=== PATIENT | female | born 1965 | race African-American/Black ===

== ENCOUNTER 2019-06-05 02:42 | Inpatient (IN) | payer MEDICAID ==
[~2019-06-05] VITALS: Ht 167.6 cm; Wt 135.7 kg
[2019-06-05] MEDS ORDERED: ALBUTEROL (0.083%) 2.5MG/3ML NEB HHN STA (05:35)
[2019-06-05] MEDS ORDERED: IPRATROPIUM BROMIDE (0.02%) 0.5MG/2.5ML NEB HHN STA (05:35)
[2019-06-05] MEDS ORDERED: PREDNISONE 20MG TABLET PO STA (05:35)
[2019-06-05] MEDS ORDERED: HYDRALAZINE HCL 10MG TABLET PO ONE (07:30)
[2019-06-05 09:04] LABS: CHLORIDE 111 mEq/L (98-107)
[2019-06-05 09:06] LABS: BASOPHILS % 0.8 % (0.0-2.0); EOSINOPHILS % 0.5 % (0.0-5.0); HEMATOCRIT. 40.9 % (36.0-48.0); HEMOGLOBIN. 13.7 g/dL (12.0-16.0); LYMPHOCYTES % 27.9 % (20.0-50.0); MEAN CORPUSCULAR HEMOGLOBIN 28.5 pg (28.0-32.0); MEAN CORPUSCULAR VOLUME 85.6 fL (81.0-99.0); MEAN PLATELET VOLUME 9.7 fl (7.4-10.4); MONOCYTES % 5.8 % (2.0-8.0); PLATELET 338 x1000/uL (130-400); RED BLOOD CELL COUNT 4.78 mill/uL (4.2-5.4); RED CELL DISTRIBUTION WIDTH 15.3 % (11.6-14.6)
[2019-06-05] MEDS ORDERED: ASPIRIN 325MG EC TABLET PO ONE (09:45)
[2019-06-05 10:07] LABS: INR 1.2; PROTHROMBIN TIME 12.7 sec (9.6-11.0)
[2019-06-05] MEDS: ENOXAPARIN 120MG/0.8ML SYR SUBCUT NR ×2 (10:34→12:02)
[2019-06-05] MEDS ORDERED: NITROGLYCERIN OINT 1GM/INCH UDPKT TD ONE ×2 (11:00→11:30)
[2019-06-05] MEDS ORDERED: ACETAMINOPHEN 325MG TABLET PO PRN (15:00)
[2019-06-05] MEDS ORDERED: ONDANSETRON HCL 4MG/2ML INJ IV PRN (15:00)
[2019-06-05 15:17] VITALS: BP 166/102
[2019-06-05 15:25] VITALS: BP 166/102
[2019-06-05] MEDS: LOSARTAN POTASSIUM 100 MG TABLET PO SCH (15:41)
[2019-06-05] MEDS: FUROSEMIDE 40MG/4ML VIAL IVP SCH ×2 (16:00→17:15)
[2019-06-05 16:34] LABS: HEPATITIS B SURFACE ANTIGEN NEGATIVE
[2019-06-05 17:00] VITALS: BP 149/99
[2019-06-05 17:04] LABS: HEPATITIS A AB IGM NEGATIVE (NEGATIVE)
[2019-06-05 20:00] VITALS: BP 112/63
[2019-06-05] MEDS: METOPROLOL TARTRATE 50MG TABLET PO SCH (21:30)
[2019-06-06] VITALS: BP 150/96
[2019-06-06] MEDS: IPRATROPIUM/ALBUTEROL 0.5-3(2.5)MG/3ML NEB HHN SCH ×6 (00:39→21:58)
[2019-06-06 04:00] VITALS: BP 135/82
[2019-06-06 06:06] LABS: BASOPHILS % 0.8 % (0.0-2.0); EOSINOPHILS % 0.6 % (0.0-5.0); HEMATOCRIT. 40.9 % (36.0-48.0); HEMOGLOBIN. 13.8 g/dL (12.0-16.0); LYMPHOCYTES % 28.1 % (20.0-50.0); MEAN CORPUSCULAR HEMOGLOBIN 28.6 pg (28.0-32.0); MEAN CORPUSCULAR VOLUME 85.1 fL (81.0-99.0); NEUTROPHILS % 62.5 % (40.0-76.0); PLATELET 333 x1000/uL (130-400); RED CELL DISTRIBUTION WIDTH 15.6 % (11.6-14.6)
[2019-06-06] MEDS: FUROSEMIDE 40MG/4ML VIAL IVP SCH ×2 (06:24→18:15)
[2019-06-06 07:25] LABS: CHLORIDE 109 mEq/L (98-107)
[2019-06-06 09:27] LABS: CLARITY URINE CLOUDY (CLEAR); COLOR URINE YELLOW (YELLOW); KETONES URINE NEGATIVE (NEGATIVE); LEUKOCYTE ESTERASE URINE 3+ (NEGATIVE); NITRITE URINE NEGATIVE (NEGATIVE); OCCULT BLOOD URINE TRACE (NEGATIVE); PROTEIN URINE 1+ (NEGATIVE); SPECIFIC GRAVITY URINE 1.017 (1.005-1.030)
[2019-06-06] MEDS: LOSARTAN POTASSIUM 100 MG TABLET PO SCH (09:34)
[2019-06-06] MEDS: METOPROLOL TARTRATE 50MG TABLET PO SCH ×2 (09:34→22:20)
[2019-06-06] MEDS: BUDESONIDE 0.5MG/2ML NEB HHN SCH ×2 (09:34→21:58)
[2019-06-06] MEDS: ASPIRIN 81MG TABLET PO SCH (09:34)
[2019-06-06 10:21] LABS: *AMPHETAMINES SCREEN URINE NEGATIVE (NEGATIVE); CANNABINOID URINE SCREEN NEGATIVE (NEGATIVE); METHADONE URINE SCREEN NEGATIVE (NEGATIVE); OPIATES URINE SCREEN NEGATIVE (NEGATIVE); PHENCYCLIDINE URINE SCREEN NEGATIVE (NEGATIVE)
[2019-06-06 10:22] LABS: *BARBITURATES SCREEN URINE NEGATIVE (NEGATIVE); *BENZODIAZEPINES SCREEN URINE NEGATIVE (NEGATIVE); *COCAINE SCREEN URINE NEGATIVE (NEGATIVE)
[2019-06-06 19:54] VITALS: BP 132/95
[2019-06-07] VITALS: BP 131/97
[2019-06-07 04:00] VITALS: BP 133/95
[2019-06-07] MEDS: IPRATROPIUM/ALBUTEROL 0.5-3(2.5)MG/3ML NEB HHN SCH ×5 (05:25→21:13)
[2019-06-07 07:58] LABS: EOSINOPHILS % 4.1 % (0.0-5.0); HEMATOCRIT. 40.5 % (36.0-48.0); HEMOGLOBIN. 13.8 g/dL (12.0-16.0); MEAN CORPUSCULAR HEMOGLOBIN 28.9 pg (28.0-32.0); MEAN CORPUSCULAR VOLUME 84.6 fL (81.0-99.0); MEAN PLATELET VOLUME 8.9 fl (7.4-10.4); MONOCYTES % 7.3 % (2.0-8.0); NEUTROPHILS % 47.6 % (40.0-76.0); PLATELET 324 x1000/uL (130-400); RED BLOOD CELL COUNT 4.78 mill/uL (4.2-5.4)
[2019-06-07 08:00] VITALS: BP 143/81
[2019-06-07] MEDS: METOPROLOL TARTRATE 50MG TABLET PO SCH ×2 (08:12→21:40)
[2019-06-07] MEDS: ASPIRIN 81MG TABLET PO SCH (08:12)
[2019-06-07] MEDS: LOSARTAN POTASSIUM 100 MG TABLET PO SCH (08:12)
[2019-06-07] MEDS: FUROSEMIDE 40MG/4ML VIAL IVP SCH ×2 (08:12→17:20)
[2019-06-07] MEDS: BUDESONIDE 0.5MG/2ML NEB HHN SCH ×2 (09:26→21:13)
[2019-06-07 10:25] LABS: CHLORIDE 109 mEq/L (98-107)
[2019-06-07 12:00] VITALS: BP 135/91
[2019-06-07 18:45] LABS: CLARITY URINE CLEAR (CLEAR); COLOR URINE YELLOW (YELLOW); KETONES URINE NEGATIVE (NEGATIVE); LEUKOCYTE ESTERASE URINE TRACE (NEGATIVE); NITRITE URINE NEGATIVE (NEGATIVE); OCCULT BLOOD URINE NEGATIVE (NEGATIVE); PH URINE 7.5 (4.5-8.0); PROTEIN URINE NEGATIVE (NEGATIVE); SPECIFIC GRAVITY URINE 1.005 (1.005-1.030); UROBILINOGEN URINE 0.2 E.U./dL (0.2-1.0)
[2019-06-07 20:00] VITALS: BP 129/86
[2019-06-08] VITALS: BP 127/75
[2019-06-08] MEDS: IPRATROPIUM/ALBUTEROL 0.5-3(2.5)MG/3ML NEB HHN SCH ×5 (01:31→16:00)
[2019-06-08 04:00] VITALS: BP 128/85
[2019-06-08] MEDS: FUROSEMIDE 40MG/4ML VIAL IVP SCH ×2 (05:29→17:53)
[2019-06-08 07:59] LABS: BASOPHILS % 1.9 % (0.0-2.0); EOSINOPHILS % 4.9 % (0.0-5.0); HEMATOCRIT. 44.7 % (36.0-48.0); HEMOGLOBIN. 14.8 g/dL (12.0-16.0); LYMPHOCYTES % 38.9 % (20.0-50.0); MEAN CORPUSCULAR HEMOGLOBIN 28.5 pg (28.0-32.0); MEAN CORPUSCULAR VOLUME 85.7 fL (81.0-99.0); MEAN PLATELET VOLUME 8.7 fl (7.4-10.4); MONOCYTES % 6.2 % (2.0-8.0); NEUTROPHILS % 48.1 % (40.0-76.0); PLATELET 342 x1000/uL (130-400); RED BLOOD CELL COUNT 5.21 mill/uL (4.2-5.4)
[2019-06-08 08:00] VITALS: BP 106/69
[2019-06-08 08:13] LABS: CHLORIDE 106 mEq/L (98-107)
[2019-06-08] MEDS: BUDESONIDE 0.5MG/2ML NEB HHN SCH (08:20)
[2019-06-08] MEDS: LOSARTAN POTASSIUM 100 MG TABLET PO SCH (09:00)
[2019-06-08] MEDS: METOPROLOL TARTRATE 50MG TABLET PO SCH (09:00)
[2019-06-08] MEDS ORDERED: POTASSIUM CHLORIDE 20MEQ TABLET SR PO SCH ×2 (09:00→18:00)
[2019-06-08] MEDS: ASPIRIN 81MG TABLET PO SCH (09:00)
[2019-06-08] MEDS ORDERED: NITROGLYCERIN 50MCG/ML 10ML VIAL (CATH LAB) IV ONE (11:54)
[2019-06-08] MEDS ORDERED: NICARDIPINE 100MCG/ML 10ML VIAL (CATH LAB) IV ONE (11:54)
[2019-06-08] MEDS ORDERED: HEPARIN SODIUM 1,000 UNIT/1ML VIAL IV ONE (11:54)
[2019-06-08 12:00] VITALS: BP 135/88
[2019-06-08] MEDS ORDERED: IODIXANOL 320MG/ML 100 ML BOTTLE IV ONE (12:45)
[2019-06-08] MEDS ORDERED: FENTANYL CITRATE/PF 50MCG/ML 2ML VIAL ONE (12:45)
[2019-06-08] MEDS ORDERED: MIDAZOLAM HCL 2 MG/2 ML VIAL ONE (12:45)
[2019-06-08] MEDS ORDERED: LIDOCAINE HCL 1% 20ML VIAL (Pyxis) INJ ONE (12:45)
[2019-06-08] MEDS ORDERED: ACETAMINOPHEN 325MG TABLET PO PRN (13:45)
[2019-06-08] MEDS ORDERED: ATROPINE SULFATE 1MG/10ML SYR IV PRN (13:45)
[2019-06-08 16:00] VITALS: BP 107/74
[2019-06-08] MEDS ORDERED: LIP40 MT (18:08)
[2019-06-08 18:34] VITALS: BP 107/74
== END 2019-06-08 20:44 | disposition home or self-care (01) | DRG 190 ==
LOC: ER 02:42 → 7WST 10:49 → ENRESERV 13:36
PROVIDERS: ADMIT Internal Medicine; ATTEND Internal Medicine
PROC: 4A023N7 Measurement of Cardiac Sampling and Pressure, Left Heart, Percutaneous Approach (ICD-10-PCS; principal; 2019-06-08)
PROC: B2111ZZ Fluoroscopy of Multiple Coronary Arteries using Low Osmolar Contrast (ICD-10-PCS; 2019-06-08)
DX: I21.4 Non-ST elevation (NSTEMI) myocardial infarction (principal); I40.9 Acute myocarditis, unspecified; I50.21 Acute systolic (congestive) heart failure; E87.8 Other disorders of electrolyte and fluid balance, not elsewhere classified; J45.901 Unspecified asthma with (acute) exacerbation; I42.9 Cardiomyopathy, unspecified; Z68.42 Body mass index [BMI] 45.0-49.9, adult; R74.0 Nonspecific elevation of levels of transaminase and lactic acid dehydrogenase [LDH]; I11.0 Hypertensive heart disease with heart failure; E66.9 Obesity, unspecified; Z87.891 Personal history of nicotine dependence; Z87.01 Personal history of pneumonia (recurrent); Z79.899 Other long term (current) drug therapy; Z71.89 Other specified counseling
CPT/HCPCS: 36415; 71045; 76700; 80048; 80053; 80061; 80305; 81003; 83735; 83880; 84443; 84484; 85025; 86705; 86709; 86803; 87340; 87804; 93005; 93306; 94640; 99285; J1644; J1650; J1940; J2250; J3010; J3490; J7512; J7626; Q9967

== ENCOUNTER 2020-02-27 11:10 | Inpatient (IN) | payer BC, MEDICAID ==
[~2020-02-27] VITALS: Ht 162.6 cm; Wt 152.4 kg
[~2020-02-27 11:10] MED LIST: LIP40 MT
[2020-02-27] MEDS ORDERED: ONDANSETRON 4MG ODT PO STA (12:14)
[2020-02-27] MEDS ORDERED: SODIUM CHLORIDE 0.9% 500 ML IV ONE (13:00)
[2020-02-27 13:29] LABS: BASOPHILS % 0.3 % (0.0-2.0); EOSINOPHILS % 1.3 % (0.0-5.0); HEMATOCRIT. 42.2 % (36.0-48.0); HEMOGLOBIN. 13.8 g/dL (12.0-16.0); LYMPHOCYTES % 34.2 % (20.0-50.0); MEAN CORPUSCULAR HEMOGLOBIN 28.6 pg (28.0-32.0); MEAN CORPUSCULAR VOLUME 87.5 fL (81.0-99.0); MEAN PLATELET VOLUME 8.3 fl (7.4-10.4); MONOCYTES % 6.4 % (2.0-8.0); NEUTROPHILS % 57.8 % (40.0-76.0); PLATELET 322 x1000/uL (130-400); RED BLOOD CELL COUNT 4.82 mill/uL (4.2-5.4); RED CELL DISTRIBUTION WIDTH 17.1 % (11.6-14.6)
[2020-02-27 13:33] LABS: CHLORIDE 111 mEq/L (98-107)
[2020-02-27 13:37] LABS: INR 1.5; PROTHROMBIN TIME 15.1 sec (9.6-11.0)
[2020-02-27] MEDS ORDERED: LABETALOL 5MG/ML SYR 20 MG/4 ML SYRINGE IV NR (14:15)
[2020-02-27] MEDS ORDERED: ASPIRIN 325MG TABLET PO ONE (15:00)
[2020-02-27 15:07] LABS: CLARITY URINE CLOUDY (CLEAR); COLOR URINE DARK YELLOW (YELLOW); KETONES URINE TRACE (NEGATIVE); LEUKOCYTE ESTERASE URINE 1+ (NEGATIVE); NITRITE URINE NEGATIVE (NEGATIVE); OCCULT BLOOD URINE 1+ (NEGATIVE); PROTEIN URINE 3+ (NEGATIVE); SPECIFIC GRAVITY URINE 1.024 (1.005-1.030)
[2020-02-27] MEDS ORDERED: CEFTRIAXONE 1 G PREMIX 50 ML IV SCH ×2 (16:30→19:30)
[2020-02-27] MEDS ORDERED: METOCLOPRAMIDE HCL 10MG/2ML VIAL IV ONE (16:45)
[2020-02-27] MEDS ORDERED: ONDANSETRON HCL 4MG/2ML INJ IV PRN (19:30)
[2020-02-27] MEDS ORDERED: MAGNESIUM/ALUMINUM HYDROXIDE/SIMETHICONE 30ML UDC PO PRN (19:30)
[2020-02-27] MEDS ORDERED: ACETAMINOPHEN 325MG TABLET PO PRN (19:30)
[2020-02-27] MEDS ORDERED: HYDROMORPHONE HCL/PF 2MG/ML CPJ IV PRN (19:30)
[2020-02-27 23:40] VITALS: BP 167/115
[2020-02-27] MEDS: DEXT 5%/0.45% NACL 1000ML 1,000 ML IV SCH (23:55)
[2020-02-27] MEDS: CLONIDINE 0.1MG TABLET PO PRN (23:56)
[2020-02-27] MEDS: ENOXAPARIN 40MG/0.4ML SYR SUBCUT SCH (23:56)
[2020-02-28] VITALS: BP 167/115
[2020-02-28 04:00] VITALS: BP 149/88
[2020-02-28 07:40] LABS: BASOPHILS % 0.5 % (0.0-2.0); EOSINOPHILS % 3.2 % (0.0-5.0); HEMATOCRIT. 38.8 % (36.0-48.0); HEMOGLOBIN. 12.7 g/dL (12.0-16.0); LYMPHOCYTES % 33.3 % (20.0-50.0); MEAN CORPUSCULAR HEMOGLOBIN 28.8 pg (28.0-32.0); MEAN CORPUSCULAR VOLUME 88.1 fL (81.0-99.0); MEAN PLATELET VOLUME 9.5 fl (7.4-10.4); MONOCYTES % 7.9 % (2.0-8.0); NEUTROPHILS % 55.1 % (40.0-76.0); PLATELET 220 x1000/uL (130-400); RED CELL DISTRIBUTION WIDTH 17.1 % (11.6-14.6)
[2020-02-28 07:49] LABS: INR 1.4
[2020-02-28 08:00] VITALS: BP 160/112
[2020-02-28 08:19] LABS: CHLORIDE 113 mEq/L (98-107)
[2020-02-28 08:27] LABS: LDL CHOLESTEROL 81 mg/dL (5-100)
[2020-02-28 08:28] LABS: CREATINE KINASE 76 IU/L (26-192)
[2020-02-28 08:29] LABS: CREATINE KINASE MB FRACTION < 1.0 ng/mL (0.5-3.6); HDL CHOLESTEROL 39 mg/dL (40-59)
[2020-02-28] MEDS: CLONIDINE 0.1MG TABLET PO PRN (09:01)
[2020-02-28] MEDS: ENOXAPARIN 40MG/0.4ML SYR SUBCUT SCH (09:02)
[2020-02-28] MEDS: DEXT 5%/0.45% NACL 1000ML 1,000 ML IV SCH (09:02)
[2020-02-28] MEDS: AMLODIPINE 10MG TABLET PO SCH (11:58)
[2020-02-28 12:00] VITALS: BP 113/95
[2020-02-28] MEDS ORDERED: CEFTRIAXONE 1,000 MG in DEXTROSE 5% WATER 50 ML IV SCH (14:00)
[2020-02-28] MEDS: FUROSEMIDE 40MG TABLET PO SCH (15:02)
[2020-02-28] MEDS: HYDRALAZINE HCL 25MG TABLET PO SCH ×2 (15:02→21:26)
[2020-02-28] MEDS: LOSARTAN POTASSIUM 25 MG TABLET PO SCH (15:02)
[2020-02-28 15:57] LABS: INR 1.4; PROTHROMBIN TIME 14.7 sec (9.6-11.0)
[2020-02-28 16:00] VITALS: BP 120/81
[2020-02-28] MEDS: ENOXAPARIN 150MG/ML SYR SUBCUT SCH (17:39)
[2020-02-28] MEDS ORDERED: WARFARIN SODIUM 5MG TABLET PO NR (18:00)
[2020-02-28 20:00] VITALS: BP 127/87
[2020-02-28] MEDS: CARVEDILOL 3.125 MG TABLET PO SCH (21:26)
[2020-02-29] VITALS: BP 113/74
[2020-02-29] MEDS: DEXT 5%/0.45% NACL 1000ML 1,000 ML IV SCH ×2 (00:27→10:49)
[2020-02-29 04:00] VITALS: BP 127/92
[2020-02-29] MEDS: ENOXAPARIN 150MG/ML SYR SUBCUT SCH (06:30)
[2020-02-29] MEDS: HYDRALAZINE HCL 25MG TABLET PO SCH (06:30)
[2020-02-29 06:59] LABS: BASOPHILS % 1.8 % (0.0-2.0); EOSINOPHILS % 5.8 % (0.0-5.0); HEMATOCRIT. 39.2 % (36.0-48.0); LYMPHOCYTES % 34.1 % (20.0-50.0); MEAN CORPUSCULAR HEMOGLOBIN 29.1 pg (28.0-32.0); MEAN CORPUSCULAR VOLUME 87.5 fL (81.0-99.0); MEAN PLATELET VOLUME 8.7 fl (7.4-10.4); MONOCYTES % 7.8 % (2.0-8.0); NEUTROPHILS % 50.5 % (40.0-76.0); PLATELET 310 x1000/uL (130-400); RED BLOOD CELL COUNT 4.48 mill/uL (4.2-5.4); RED CELL DISTRIBUTION WIDTH 17.5 % (11.6-14.6)
[2020-02-29 07:14] LABS: CHLORIDE 110 mEq/L (98-107)
[2020-02-29 07:33] LABS: INR 1.3; PROTHROMBIN TIME 13.3 sec (9.6-11.0)
[2020-02-29 08:09] VITALS: BP 151/102
[2020-02-29] MEDS: CARVEDILOL 3.125 MG TABLET PO SCH (08:39)
[2020-02-29] MEDS: FUROSEMIDE 40MG TABLET PO SCH (08:39)
[2020-02-29] MEDS: LOSARTAN POTASSIUM 25 MG TABLET PO SCH (08:39)
[2020-02-29] MEDS: AMLODIPINE 10MG TABLET PO SCH (08:41)
[2020-02-29 12:49] VITALS: BP 150/82
[2020-02-29] MEDS ORDERED: HYDRALAZINE HCL 50MG TABLET PO SCH (14:00)
[2020-02-29] MEDS ORDERED: WARFARIN SODIUM 5MG TABLET PO NR (18:00)
[2020-02-29] MEDS ORDERED: CARVEDILOL 6.25 MG TABLET PO SCH (21:00)
== END 2020-02-29 13:50 | disposition home or self-care (01) | DRG 690 ==
LOC: ER 11:10 → 5WST 17:57 → EDBEDREQ 18:20 → ENRESERV 20:40
PROVIDERS: ADMIT Hospitalist; ATTEND Hospitalist
DX: N39.0 Urinary tract infection, site not specified (principal); I50.22 Chronic systolic (congestive) heart failure; I42.0 Dilated cardiomyopathy; Z68.43 Body mass index [BMI] 50.0-59.9, adult; I11.0 Hypertensive heart disease with heart failure; E86.0 Dehydration; J45.909 Unspecified asthma, uncomplicated; K42.9 Umbilical hernia without obstruction or gangrene; E66.9 Obesity, unspecified; Z79.01 Long term (current) use of anticoagulants; I51.3 Intracardiac thrombosis, not elsewhere classified
CPT/HCPCS: 36415; 74176; 76705; 80048; 80053; 80061; 81003; 82550; 82553; 83735; 84443; 84484; 85025; 93005; 93306; 93970; 96374; 99291; J0696; J1650; J2405; J2765; J3490; J7040; J7060; Q0162

== ENCOUNTER 2020-08-04 10:26 | Inpatient (IN) | payer BC, MEDICAID ==
[2020-08-04] VITALS: BP 141/104
[~2020-08-04] VITALS: Ht 162.6 cm; Wt 98.5 kg
[2020-08-04] MEDS ORDERED: MORPHINE SULFATE 4 MG/ML CPJ (NOT FOR IM USE) IV STA (10:39)
[2020-08-04] MEDS ORDERED: FAMOTIDINE 20MG/2ML VIAL IV STA (10:39)
[2020-08-04] MEDS ORDERED: ONDANSETRON HCL 4MG/2ML INJ IV STA (10:39)
[2020-08-04] MEDS ORDERED: SODIUM CHLORIDE 0.9% 1,000 ML IV ONE (10:45)
[2020-08-04 11:10] LABS: BASOPHILS % 0.8 % (0.0-2.0); EOSINOPHILS % 0.5 % (0.0-5.0); HEMATOCRIT. 42.6 % (36.0-48.0); HEMOGLOBIN. 13.8 g/dL (12.0-16.0); LYMPHOCYTES % 24.2 % (20.0-50.0); MEAN CORPUSCULAR HEMOGLOBIN 29.7 pg (28.0-32.0); MEAN CORPUSCULAR VOLUME 91.4 fL (81.0-99.0); MEAN PLATELET VOLUME 8.7 fl (7.4-10.4); MONOCYTES % 7.8 % (2.0-8.0); NEUTROPHILS % 66.7 % (40.0-76.0); PLATELET 316 x1000/uL (130-400); RED BLOOD CELL COUNT 4.66 mill/uL (4.2-5.4); RED CELL DISTRIBUTION WIDTH 16.5 % (11.6-14.6)
[2020-08-04 11:19] LABS: CHLORIDE 112 mEq/L (98-107); INR 1.4; PROTHROMBIN TIME 14.9 sec (9.6-11.0)
[2020-08-04 11:36] LABS: HCG SCREEN NEGATIVE
[2020-08-04] MEDS ORDERED: ASPIRIN 325MG EC TABLET PO ONE (11:45)
[2020-08-04] MEDS ORDERED: PIPERACILLIN/TAZ 3.375G PREMIX 50 ML IV ONE (12:15)
[2020-08-04] MEDS ORDERED: IOHEXOL-300 100 ML BOTTLE ONE (12:37)
[2020-08-04 16:00] VITALS: BP 195/131
[2020-08-04] MEDS ORDERED: ONDANSETRON HCL 4MG/2ML INJ IV PRN ×2 (16:00→19:30)
[2020-08-04] MEDS ORDERED: HYDROCODONE/ACETAMINOPHEN 5/325MG TABLET PO PRN (16:00)
[2020-08-04] MEDS ORDERED: ACETAMINOPHEN 325MG TABLET PO PRN (16:00)
[2020-08-04] MEDS: CLONIDINE 0.1MG TABLET PO PRN (16:59)
[2020-08-04] MEDS: FUROSEMIDE 40MG/4ML VIAL IVP SCH (16:59)
[2020-08-04] MEDS: LOSARTAN POTASSIUM 100 MG TABLET PO SCH (16:59)
[2020-08-04] MEDS ORDERED: HYDRALAZINE HCL 100MG TABLET PO NR (19:30)
[2020-08-04 20:00] VITALS: BP 113/75
[2020-08-04 21:35] LABS: CLARITY URINE CLEAR (CLEAR); COLOR URINE YELLOW (YELLOW); KETONES URINE NEGATIVE (NEGATIVE); LEUKOCYTE ESTERASE URINE NEGATIVE (NEGATIVE); NITRITE URINE NEGATIVE (NEGATIVE); OCCULT BLOOD URINE NEGATIVE (NEGATIVE); PH URINE 5.5 (4.5-8.0); PROTEIN URINE NEGATIVE (NEGATIVE); SPECIFIC GRAVITY URINE 1.008 (1.005-1.030); UROBILINOGEN URINE 0.2 E.U./dL (0.2-1.0)
[2020-08-04 21:46] LABS: *AMPHETAMINES SCREEN URINE NEGATIVE (NEGATIVE); *BARBITURATES SCREEN URINE NEGATIVE (NEGATIVE); *BENZODIAZEPINES SCREEN URINE NEGATIVE (NEGATIVE); *COCAINE SCREEN URINE NEGATIVE (NEGATIVE); CANNABINOID URINE SCREEN NEGATIVE (NEGATIVE); METHADONE URINE SCREEN NEGATIVE (NEGATIVE); OPIATES URINE SCREEN NEGATIVE (NEGATIVE); PHENCYCLIDINE URINE SCREEN NEGATIVE (NEGATIVE)
[2020-08-04] MEDS: CARVEDILOL 12.5MG TABLET PO SCH (22:02)
[2020-08-04] MEDS: HYDRALAZINE HCL 100MG TABLET PO SCH (22:02)
[2020-08-04] MEDS: ENOXAPARIN 100MG/ML SYR SUBCUT SCH (22:02)
[2020-08-04] MEDS: FAMOTIDINE 20MG TABLET PO SCH (22:02)
[2020-08-04] MEDS: METOCLOPRAMIDE HCL 10MG/2ML VIAL IV SCH (23:53)
[2020-08-05] VITALS: BP 141/104
[2020-08-05 04:00] VITALS: BP 136/89
[2020-08-05 06:17] LABS: CHLORIDE 111 mEq/L (98-107)
[2020-08-05 06:26] LABS: BASOPHILS % 1.2 % (0.0-2.0); EOSINOPHILS % 2.1 % (0.0-5.0); HEMATOCRIT. 38.8 % (36.0-48.0); HEMOGLOBIN. 12.9 g/dL (12.0-16.0); LYMPHOCYTES % 23.4 % (20.0-50.0); MEAN CORPUSCULAR HEMOGLOBIN 30.2 pg (28.0-32.0); MEAN PLATELET VOLUME 8.5 fl (7.4-10.4); NEUTROPHILS % 62.3 % (40.0-76.0); PLATELET 314 x1000/uL (130-400); RED BLOOD CELL COUNT 4.26 mill/uL (4.2-5.4)
[2020-08-05] MEDS: FUROSEMIDE 40MG/4ML VIAL IVP SCH ×2 (06:28→17:30)
[2020-08-05] MEDS: METOCLOPRAMIDE HCL 10MG/2ML VIAL IV SCH ×4 (06:28→23:59)
[2020-08-05] MEDS: HYDRALAZINE HCL 100MG TABLET PO SCH ×3 (06:28→21:25)
[2020-08-05 08:00] VITALS: BP 139/80
[2020-08-05] MEDS: ASPIRIN 81MG TABLET PO SCH (08:07)
[2020-08-05] MEDS: LOSARTAN POTASSIUM 100 MG TABLET PO SCH (08:09)
[2020-08-05] MEDS: CARVEDILOL 12.5MG TABLET PO SCH ×2 (08:09→21:25)
[2020-08-05] MEDS: ENOXAPARIN 100MG/ML SYR SUBCUT SCH (08:09)
[2020-08-05 12:00] VITALS: BP 126/81
[2020-08-05 16:00] VITALS: BP 116/76
[2020-08-05 17:28] LABS: INR 1.4; PROTHROMBIN TIME 14.8 sec (9.6-11.0)
[2020-08-05 20:00] VITALS: BP 153/89
[2020-08-05] MEDS: FAMOTIDINE 20MG TABLET PO SCH (21:25)
[2020-08-06] VITALS: BP 90/51
[2020-08-06 04:00] VITALS: BP 109/68
[2020-08-06] MEDS: HYDRALAZINE HCL 100MG TABLET PO SCH ×3 (06:00→21:43)
[2020-08-06] MEDS: FUROSEMIDE 40MG/4ML VIAL IVP SCH ×2 (06:28→16:55)
[2020-08-06] MEDS: METOCLOPRAMIDE HCL 10MG/2ML VIAL IV SCH ×3 (06:28→16:55)
[2020-08-06 08:23] VITALS: BP_SYST 126; BP_SYST 135; BP_DIAS 115; BP_DIAS 75
[2020-08-06] MEDS ORDERED: LIDOCAINE HCL 1% 20ML VIAL (Pyxis) INJ ONE (08:26)
[2020-08-06] MEDS ORDERED: SODIUM BICARBONATE 4% (2.4MEQ) 5ML VIAL IV ONE (08:27)
[2020-08-06] MEDS: CARVEDILOL 12.5MG TABLET PO SCH ×2 (10:44→21:00)
[2020-08-06] MEDS: LOSARTAN POTASSIUM 100 MG TABLET PO SCH (10:44)
[2020-08-06 12:08] VITALS: BP 176/113
[2020-08-06] MEDS: ASPIRIN 81MG TABLET PO SCH (15:02)
[2020-08-06 15:29] VITALS: BP 102/65
[2020-08-06] MEDS ORDERED: DIPHENHYDRAMINE 25MG CAPSULE PO PRN (16:45)
[2020-08-06] MEDS: CLONIDINE 0.1MG TABLET PO PRN (16:55)
[2020-08-06 20:00] VITALS: BP 94/46
[2020-08-06] MEDS: FAMOTIDINE 20MG TABLET PO SCH (21:47)
[2020-08-07] VITALS: BP 105/68
[2020-08-07] MEDS: METOCLOPRAMIDE HCL 10MG/2ML VIAL IV SCH ×3 (01:03→12:00)
[2020-08-07 04:00] VITALS: BP 94/62
[2020-08-07] MEDS: HYDRALAZINE HCL 100MG TABLET PO SCH (06:00)
[2020-08-07] MEDS: FUROSEMIDE 40MG/4ML VIAL IVP SCH (06:19)
[2020-08-07 08:00] VITALS: BP 99/58
[2020-08-07] MEDS: CARVEDILOL 12.5MG TABLET PO SCH (09:00)
[2020-08-07] MEDS: ASPIRIN 81MG TABLET PO SCH (09:46)
[2020-08-07 13:59] VITALS: BP 122/68
[2020-08-08] MEDS ORDERED: LOSARTAN POTASSIUM 50 MG TABLET PO SCH (09:00)
== END 2020-08-07 16:04 | disposition home or self-care (01) | DRG 249 ==
LOC: ER 10:36 → EDBEDREQ 13:20 → ENRESERV 15:11 → 6WST 16:41
PROVIDERS: ADMIT Internal Medicine; ATTEND Internal Medicine
PROC: 0J983ZZ Drainage of Abdomen Subcutaneous Tissue and Fascia, Percutaneous Approach (ICD-10-PCS; principal; 2020-08-06)
DX: A08.4 Viral intestinal infection, unspecified (principal); I50.23 Acute on chronic systolic (congestive) heart failure; I42.0 Dilated cardiomyopathy; E87.8 Other disorders of electrolyte and fluid balance, not elsewhere classified; R18.8 Other ascites; I43 Cardiomyopathy in diseases classified elsewhere; I11.0 Hypertensive heart disease with heart failure; I16.0 Hypertensive urgency; E66.9 Obesity, unspecified; E78.5 Hyperlipidemia, unspecified; Z20.822 Contact with and (suspected) exposure to COVID-19; J45.909 Unspecified asthma, uncomplicated; Z71.3 Dietary counseling and surveillance; Z79.899 Other long term (current) drug therapy; Z86.79 Personal history of other diseases of the circulatory system; R77.8 Other specified abnormalities of plasma proteins; Z68.37 Body mass index [BMI] 37.0-37.9, adult
CPT/HCPCS: 20611; 36415; 71045; 74177; 76705; 80048; 80053; 80305; 81003; 83605; 83880; 84145; 84484; 84703; 85025; 87426; 93005; 93306; 99291; J1650; J1940; J2270; J2405; J2543; J2765; J3490; J7030; Q0163; Q9967